=== PATIENT | male | born 1985 | race African-American/Black ===

== ENCOUNTER → 2017-02-05 | Outpatient (CLI) | payer BC ==
[~2017-02-05] MED LIST: FLEXERIL10 MG PO; NAPROSYN500 MG PO
--- NOTE | ~2017-02-05 | CT71 ---
[facility] A Service of [facility] RADIOLOGY TEXT RESULTS PATIENT: FRANCIS HARDIN LOCATION: [facility] : 83 UNIT #: [id number] AGE: [address]: Bello Lawrence MD SEX: M ORDER DR: [id number] [facility]. [place], [place] [address] [id number] O MR#: [id number] Acc #: [id number] NAME: FRANCIS HARDIN : 1985 SEX: M STUDY DATE/TIME: 02/05/2017 8:05 UNIT: [facility]AT ROOM: STUDY DESCRIPTION: CT Head Wo Contrast Attending Physician: Bello Lawrence M.D. Referring Physician: Bello Lawrence M.D. Ordering Physician: Bello Lawrence M.D. Primary Care Physician: Bello Lawrence M.D. MEDICAL IMAGING REPORT This report is preliminary unless electronic signature is present EXAM Noncontrast CT head. DATE 02/05/2017 HISTORY 31-year-old male with migraine headaches bilaterally, sensitivity to light, nausea, vomiting, blurred vision and dizziness. Symptoms have been present for 2 months. No documented injury. COMPARISON None. TECHNIQUE This CT exam was performed with one or more of the following radiation dose reduction techniques: automatic control, adjustment of mA and/or kV according to patient size, and iterative reconstruction. FINDINGS Axial noncontrast images were obtained from the skull base to the vertex. Ventricular size and configuration are normal. There is no evidence of acute infarct or hemorrhage. There are no extra-axial fluid collections. No mass lesion or mass effect is seen. There are no skull fractures. IMPRESSION Normal noncontrast head CT Dictated by... Kathryn Palmer M.D. THIS IS AN ELECTRONICALLY VERIFIED REPORT [facility] A Service of [facility] RADIOLOGY TEXT RESULTS PATIENT: FRANCIS HARDIN LOCATION: [facility] : 83 UNIT #: [id number] AGE: [address]: Bello Lawrence MD SEX: M ORDER DR: Kathryn Palmer M.D. at 02/06/2017 8:32 AM TAYO/neel TD: 02/05/2017 13:39 JOB #: [id number] MEDICAL IMAGING REPORT Page 1 of 1 COPY
== END | disposition home or self-care (01) ==
LOC: CCAT 07:40
DX: G43.909 Migraine, unspecified, not intractable, without status migrainosus (principal)
CPT/HCPCS: 70450